=== PATIENT | female | born 1985 | race Two or more races ===

== ENCOUNTER 2022-08-20 05:59 | Emergency (ER) | payer OTHER ==
[~2022-08-20] VITALS: Ht 170.2 cm; Wt 71.8 kg
[2022-08-20] MEDS ORDERED: ONDANSETRON ODT 4 MG TAB PO ONE (07:30)
[2022-08-20] MEDS ORDERED: MORPHINE SULFATE 4 MG/ML SYR/VIAL IV ONE (07:30)
[2022-08-20] MEDS ORDERED: TRAM50TA2 PO (08:59)
[2022-08-20 10:12] VITALS: BP 119/69
== END 2022-08-20 10:11 | disposition home or self-care (01) ==
LOC: ER 05:59 → EDBD 05:59 → ER 10:11
DX: S16.1XXA Strain of muscle, fascia and tendon at neck level, initial encounter (principal); S00.83XA Contusion of other part of head, initial encounter; S60.222A Contusion of left hand, initial encounter; S20.211A Contusion of right front wall of thorax, initial encounter; Z98.890 Other specified postprocedural states; V89.2XXA Person injured in unspecified motor-vehicle accident, traffic, initial encounter; Y93.89 Activity, other specified; Y92.411 Interstate highway as the place of occurrence of the external cause; Y99.8 Other external cause status
CPT/HCPCS: 70450; 70486; 71045; 72125; 73120; 96374; 99285; J2270; Q0162